=== PATIENT | male | born 1985 | race Caucasian/White ===

== ENCOUNTER 2018-12-30 15:31 | Emergency (ER) | payer OTHER ==
[2018-12-30 15:36] VITALS: TEMP 99
[2018-12-30] MEDS ORDERED: SODIUM CHLORIDE 0.9% 1000ML 1,000 ML IV ONE (15:40)
[2018-12-30] MEDS ORDERED: ONDANSETRON HCL 4 MG/2 ML SOL IV ONE ×2 (15:41→17:25)
[2018-12-30 15:49] LABS: BASOPHILS % (AUTO) 1 % (0-3); EOSINOPHILS % (AUTO) 0 % (0-9); HEMATOCRIT 44 % (39-53); LYMPHOCYTES % (AUTO) 17.5 % (10-50); MEAN CORPUSCULAR HEMOGLOBIN 30.1 pg (27.0-32.0); MEAN CORPUSCULAR HGB CONC 34.1 gm/dl (32.0-36.0); MEAN CORPUSCULAR VOLUME 88 fL (80-100); MONOCYTES % (AUTO) 10.3 % (0-12)
[2018-12-30] MEDS ORDERED: ONDANSETRON HCL 4 MG/2 ML SOL ONE ×2 (15:54→17:25)
[2018-12-30 16:03] LABS: ALBUMIN 4.2 gm/dl (3.4-5.0); BILIRUBIN,TOTAL 0.8 mg/dl (0.2-1.0); CALCIUM 8.2 mg/dl (8.5-10.1); CARBON DIOXIDE 26.4 mEq/L (21-32); CREATININE 1.06 mg/dl (0.80-1.30); MAGNESIUM 1.8 mg/dl (1.8-2.4); POTASSIUM 3.6 mMol/L (3.5-5.1); TOTAL PROTEIN 7.7 gm/dl (6.4-8.2)
[2018-12-30 17:00] LABS: APPEARANCE,URINE Clear; BILIRUBIN,URINE NEGATIVE (NEGATIVE); COLOR,URINE Yellow; GLUCOSE, URINE (UA) NEGATIVE (NEGATIVE); KETONES,URINE NEGATIVE (NEGATIVE); LEUKOCYTE ESTERASE ,URINE NEGATIVE (NEGATIVE); NITRATE,URINE NEGATIVE (NEGATIVE); OCCULT BLOOD,URINE NEGATIVE (NEG-TRACE); UROBILINOGEN,URINE 0.2 (0.2-1.0 EU)
[2018-12-30 17:06] LABS: RBC,URINE 0-2 (0-3AV/HPF); WBC,URINE 0-2 (0-5AV/HPF)
[2018-12-30 17:07] LABS: BACTERIA RARE (< 1+); CRYSTALS NEGATIVE (0-3 AVE/HPF); EPITHELIAL CELLS 0-2 (SQUAMOUS)
[2018-12-30] MEDS ORDERED: ALUMINUM/MAGNESIUM 30 ML SUS PO ONE (17:14)
[2018-12-30] MEDS ORDERED: LORAZEPAM 0.5 MG TAB PO ONE (17:15)
[2018-12-30] MEDS ORDERED: ALUMINUM/MAGNESIUM 30 ML SUS ONE (17:15)
[2018-12-30] MEDS ORDERED: LORAZEPAM 0.5 MG TAB ONE (17:17)
[2018-12-30] MEDS ORDERED: PANTOPRAZOLE SODIUM 40 MG/10 ML PDS IV ONE (17:25)
[2018-12-30] MEDS ORDERED: PANTOPRAZOLE SODIUM 40 MG/10 ML PDS ONE (17:26)
[2018-12-30] MEDS ORDERED: LORAZEPAM 2 MG/ML SOL IV ONE (17:29)
[2018-12-30] MEDS ORDERED: LORAZEPAM 2 MG/ML SOL ONE (17:32)
[2018-12-30 18:27] VITALS: RESP 18
[2018-12-30 18:28] VITALS: BP 135/85; PULSE 91; O2SAT 96
== END 2018-12-30 18:25 | disposition home or self-care (01) | DRG 880 ==
LOC: ED 15:31
DX: F41.0 Panic disorder [episodic paroxysmal anxiety] (principal); F41.9 Anxiety disorder, unspecified; E86.0 Dehydration; K21.9 Gastro-esophageal reflux disease without esophagitis; I10 Essential (primary) hypertension
CPT/HCPCS: 80053; 81001; 83735; 85025; 93005; 96365; 96374; 96375; 99283; 99285; J2060; J2405; A9270-GY